=== PATIENT | female | born 1995 | race Caucasian/White ===

== ENCOUNTER 2018-02-04 00:55 | Emergency (ER) | payer SELFPAY ==
[~2018-02-04] VITALS: Ht 167.6 cm; Wt 68.0 kg
[2018-02-04 01:43] LABS: CLARITY URINE CLOUDY (CLEAR); COLOR URINE YELLOW (YELLOW); KETONES URINE NEGATIVE (NEGATIVE); LEUKOCYTE ESTERASE URINE 3+ (NEGATIVE); NITRITE URINE NEGATIVE (NEGATIVE); OCCULT BLOOD URINE 2+ (NEGATIVE); PROTEIN URINE 2+ (NEGATIVE); SPECIFIC GRAVITY URINE 1.011 (1.005-1.030); UROBILINOGEN URINE 0.2 E.U./dL (0.2-1.0)
[2018-02-04] MEDS ORDERED: KETOROLAC 60MG/2ML VIAL IM ONE (03:15)
[2018-02-04 05:59] VITALS: BP 104/56
== END 2018-02-04 06:11 | disposition home or self-care (01) ==
LOC: ER 00:55
DX: N39.0 Urinary tract infection, site not specified (principal)
CPT/HCPCS: 81003; 81025; 87077; 87086; 87186; 96372; 99284; J1885; Z7610